=== PATIENT | male | born 1980 | race Caucasian/White ===

== ENCOUNTER 2017-02-20 19:14 | Emergency (ER) | payer OTHER ==
[~2017-02-20] VITALS: Ht 177.8 cm; Wt 88.6 kg
[2017-02-20 19:19] VITALS: BP 152/87; PULSE 64; RESP 18; O2SAT 98
--- NOTE | 2017-02-20 21:17 | ED.REPORT ---
HPI-Extremity Problem Upper Date of Service Feb 20, 2017 ED Provider: Dr. Tenzin Iniguez M.D. The patient is a healthy 36 year old male who presents to the ED accompanied by his family with a right hand injury onset 40 minutes prior to arrival, while at work. The patient cut his proximal second finger with an electric circular saw. He denies additional injury/trauma or other symptoms. The patient speaks Finnish and his son was translating. Nursing Notes Stated Complaint: CUT ON RIGHT HAND Chief Complaint: Extremity Trauma Nursing Notes Reviewed: Yes Allergies: Coded Allergies: No Known Allergies (Unverified , 02/20/17) Scheduled Cephalexin (Keflex) 500 Mg Capsule 500 MG PO QID Scheduled PRN Ibuprofen (Ibuprofen) 600 Mg Tablet 600 MG PO QID PRN PRN For Pain General Time Seen by MD: 21:16 Chief Complaint Hand injury right Hx Obtained From: Patient, Son Arrived By: Walk-in Onset Occurred: 31 - 45 minutes ago Symptom Duration: Since onset Caused by: Accidental Context: Occurred at: Workplace Location: : Finger right 2 Quality: Painful Severity: Current: Moderate Severity: Maximum: Moderate Pertinent Negative: Relieved by nothing Immunizations: Unknown Recent Healthcare: No recent doctor visit Past Medical History Past Medical History None reported Past Surgical History None reported Smoking History Unknown if Ever Smoker Social History Other Social History: Good social support, , Lives with children Ambulatory Status Independent Review of Systems Review of Systems Note: + Laceration to proximal right second finger Constitutional: Denies: Fever Musculoskeletal: Reports: Extremity pain (Right hand) Complete sys rev & neg: except as marked. Respiratory: Denies: Non-productive cough, Shortness of breath GI: Denies: Diarrhea, Vomiting Physical Exam Initial Vital Signs Vital Signs (First) Date Time Temp Pulse Resp B/P Pulse Ox O2 Delivery O2 Flow Rate FiO2 02/20/17 19:19 36.6 64 18 152/87 98 Room Air Initial VS: Reviewed Head / Eyes: Atraumatic, Normocephalic ENT: Conjunctiva normal, No scleral icterus Neck: Supple, Full range of motion Skin: Warm, Dry, No cyanosis Neurologic: Alert, Oriented, Nonfocal Psychiatric: Mood/affect normal, Behavior normal, Normal thought content General/Constitutional: Awake, Alert, No acute distress Wrist / Hand: Full range of motion, Neurologic intact, Vascular intact Trauma / Burn / Environmental: Positive: Laceration (2.5 cm transverse laceration on dorsal aspect of right index finger MCP joint with 5mm defect in joint capsule) Extension intact Interpretation & Diagnostics X-Ray Interpretation Xray Interpretation: IMPRESSION: No definitive fracture. The lateral view is suboptimal because of overlapping structures. If clinically indicated, repeat lateral view with better isolation of the second finger may be obtained. Dictated by: Braulio Fierro M.D. on 02/20/2017 at 21:54 Study Performed: 2 View X-Ray Ordered: Hand right Interpretation / Wet Read by: Interpret - Radiologist Procedures Laceration Management Time: 22:35 Procedure Performed by: ED physician Consent / Setup / Site Prep: Consent from patient, Time-out performed, Hand hygiene observed, Stand sterile technique Location of Wound: 2.5 cm transverse laceration on dorsal aspect of right index finger MCP joint with 5mm defect in joint capsule Local Anesthesia: Lidocaine 1% Wound Preparation: Betadine, Normal saline Irrigation: Copious Foreign Body Explore / Removal: Explored for foreign body Repair Skin: ___ O (4), Nylon (Ethilon) # Sutures - Skin: 7 (Simple) Repair Fascia: ___ O (5), Vicryl Closure Layers: 2 Suture Technique: Simple, Running Post-Procedure / Complications: Antibiotic oint applied, Dressing applied, No complications, Condition improved, Tolerated procedure well, Patient stable Re-Eval/Medical Decision Med Decision/Clinical Course 36-year-old presents with a laceration to his dorsal hand at the second MCP. This does violate the joint capsule slightly. This is along the side and does not appear to involve the extensor tendon or least not extensively. The ear was lavaged heavily, and then the fascia of the joint was closed with a running Vicryl suture. The skin was then closed with 4-0 nylon. He is placed in a splint and begun with antibiotics. He is referred to hand surgery Dr. Emmanuel for further evaluation this week. Re-Evaluation/Progress : Time of Eval: 23:08 Patient Status: Condition improved Re-Evaluation/Progress Note: Discussed with patient x-ray results, diagnosis, and plan for discharge. Follow-up and return to the ER instructions given. Patient agrees with plan for care and all questions were addressed. Counseled Regarding: Diagnosis, Need for follow-up, When/why to return to ED Discharge & Departure Impression: Primary Impression: Finger laceration Encounter type: initial encounter Qualified Code: S61.219A - Laceration without foreign body of unspecified finger without damage to nail, initial encounter Additional Impression: Laceration of extensor muscle, fascia and tendon of left index finger at wrist and hand level, sequela Disposition: Home Discharge Condition All VS Reviewed: Yes Condition: Improved Patient Instructions: Finger Laceration (ED) Additional Instructions: Contact the hand surgeon on Thursday for follow-up this week. With splint flat knitter helper except to change the dressing and apply more antibiotic ointment. Change the dressing and apply ointment 3-4 times daily. Change it more frequently if it becomes soiled. Reapply the splint immediately after each dressing change. Keep the hand clean and dry. Keep the splint on flat knitter helper otherwise. Return if any sign of infection. Keflex four times daily. Ibuprofen four times daily as needed for pain. Elevate the hand whenever possible above the level of the heart to reduce swelling. Referrals: [facility] (PCP) Elias Emmanuel Attestation Portions of this note were transcribed by Maddison Valle. I, Dr. Iniguez, personally performed the history, physical exam, and medical decision-making; I reviewed and confirmed the accuracy of the information in the transcribed note. Signed by: Kamila Christianson, 02/21/2017, 00:40 copies to: [facility]; Elias Emmanuel Christopher W MD Feb 20, 2017 21:16 MADDISON VALLE Feb 20, 2017 21:18
--- NOTE | 2017-02-20 21:58 | DRSVH ---
PROCEDURE: X-RAY RIGHT HAND, TWO VIEWS ([id number]) INDICATIONS: HAND LACERATION FROM A CIRCULAR SAW TECHNIQUE: 2 views of the hand(s) acquired. COMPARISON: None. FINDINGS: Bones: No fractures or dislocations. Carpal bones are normally aligned. No suspicious bony lesions . Soft tissues: No suspicious soft tissue calcifications. IMPRESSION: No definitive fracture. The lateral view is suboptimal because of overlapping structures. If clinically indicated, repeat lateral view with better isolation of the second finger may be obtai laurent. Dictated by: Braulio Fierro M.D. on 02/20/2017 at 21:54 Approved by: Braulio Fierro M.D. on 02/20/2017 at 21:56
[2017-02-20] MEDS ORDERED: CEPH-512 PO (23:16)
[2017-02-20] MEDS ORDERED: IBUP-1827 PO (23:16)
[2017-02-20 23:29] VITALS: PULSE 68; RESP 16; O2SAT 99
== END 2017-02-20 23:29 | disposition home or self-care (01) ==
LOC: SED 19:14
DX: S61.211A Laceration without foreign body of left index finger without damage to nail, initial encounter (principal); S66.32 Laceration of extensor muscle, fascia and tendon of other and unspecified finger at wrist and hand level; W31.2XXA Contact with powered woodworking and forming machines, initial encounter; Y93.89 Activity, other specified; Y99.0 Civilian activity done for income or pay; Y92.69 Other specified industrial and construction area as the place of occurrence of the external cause